=== PATIENT | male | born 1955 | race Caucasian/White ===

== ENCOUNTER 2018-11-09 14:47 | Observation (INO) ==
[2018-11-09] MEDS ORDERED: ASPIRIN 325 MG TABLET PO STA (16:22)
[2018-11-09 16:30] LABS: Basophils % 0.4 % (0.0-0.8); Eosinophils # 0.1 10*3/uL (0.0-0.87); Eosinophils % 1.8 % (0.00-10.9); Hematocrit 42.1 VOL% (42.0-52.0); Hemoglobin 14.2 GM/DL (14.0-18.0); Immature Granulocytes % 0.4 %; Immature Granulocytes Absolute 0.03 #; Lymphocytes # 1.7 10*3/uL (1.4-4.0); Lymphocytes % 23.3 % (21.2-54.2); Mean Corpuscular HGB Conc 33.7 GM/DL (32-36); Mean Corpuscular Hemoglobin 29 PG (27-34); Mean Corpuscular Volume 85.9 FL (87-102); Mean Platelet Volume 9.9 FL (9.6-12.0); Monocytes # 0.6 10*3/uL (0.11-0.8); Monocytes % 8.8 % (1.7-12.7); Neutrophils # 4.7 10*3/uL (1.4-7.4); Neutrophils % 65.3 % (38.7-73.9); Platelet Count 221 T/CUMM (130-400); Red Cell Distribution Width 12.8 % (9.3-17.3); White Blood Count 7.2 T/CUMM (4-12)
[2018-11-09 16:35] LABS: INR 0.9; PT Patient Result 9.7 SECS
[2018-11-09 16:55] LABS: Alanine Aminotransferase 38 U/L (16-61); Albumin 3.5 G/DL (3.4-5.0); Alkaline Phosphatase 109 U/L (45-117); Aspartate Amino Transferase 34 U/L (0-37); Blood Urea Nitrogen 16 MG/DL (7-18); CKMB % 1.9 %; Calcium 8.5 MG/DL (8.5-10.1); Glucose 347 MG/DL (74-106); Osmolality,Calculated 287.8 MOS/KG (273-304); Potassium 4.3 MMOL/L (3.5-5.1); Sodium 137 MMOL/L (136-145); Total Protein 7.7 G/DL (6.4-8.3); Troponin I < 0.015 NG/ML (0.00-0.045)
[2018-11-09] MEDS ORDERED: FUROSEMIDE 20 MG/2 ML VIAL IV STA (17:37)
[2018-11-09] MEDS ORDERED: ONDANSETRON 4 MG/2 ML VIAL IV PRN (17:44)
[2018-11-09] MEDS ORDERED: ACETAMINOPHEN 325 MG TABLET PO PRN (17:44)
[2018-11-09] MEDS ORDERED: ENOXAPARIN 120 MG/0.8 ML SYRINGE SUBCUT STA (17:48)
[2018-11-09] MEDS: DOCUSATE SODIUM 100 MG CAPSULE PO SCH (21:20)
[2018-11-10 06:16] LABS: Basophils % 0.4 % (0.0-0.8); Eosinophils # 0.2 10*3/uL (0.0-0.87); Eosinophils % 2.7 % (0.00-10.9); Hematocrit 43.1 VOL% (42.0-52.0); Hemoglobin 14.2 GM/DL (14.0-18.0); Immature Granulocytes % 0.3 %; Immature Granulocytes Absolute 0.02 #; Lymphocytes # 2.4 10*3/uL (1.4-4.0); Lymphocytes % 31.9 % (21.2-54.2); Mean Corpuscular HGB Conc 32.9 GM/DL (32-36); Mean Corpuscular Hemoglobin 28 PG (27-34); Mean Corpuscular Volume 86.2 FL (87-102); Mean Platelet Volume 10.2 FL (9.6-12.0); Monocytes # 0.8 10*3/uL (0.11-0.8); Monocytes % 10.7 % (1.7-12.7); Neutrophils # 4.1 10*3/uL (1.4-7.4); Platelet Count 214 T/CUMM (130-400); Red Cell Distribution Width 12.9 % (9.3-17.3); White Blood Count 7.5 T/CUMM (4-12)
[2018-11-10 06:35] LABS: Albumin 3.3 G/DL (3.4-5.0); Bilirubin,Total 0.7 MG/DL (0.2-1.0); Calcium 8.1 MG/DL (8.5-10.1); Potassium 3.9 MMOL/L (3.5-5.1); Total Protein 6.7 G/DL (6.4-8.3)
[2018-11-10] MEDS ORDERED: hydrOXYzine HCL 25 MG TABLET PO PRN (07:50)
[2018-11-10] MEDS ORDERED: ZALEPLON 5 MG CAPSULE PO PRN (07:50)
[2018-11-10] MEDS: LEVOTHYROXINE 150 MCG TABLET PO SCH (08:25)
[2018-11-10] MEDS: LOSARTAN 50 MG TABLET PO SCH (08:25)
[2018-11-10] MEDS: PANTOPRAZOLE 40 MG TABLET PO SCH (08:25)
[2018-11-10] MEDS: ENOXAPARIN 40 MG/0.4 ML SYRINGE SUBCUT SCH (08:26)
[2018-11-10] MEDS: PREGABALIN 50 MG CAPSULE PO SCH ×2 (08:26→21:37)
[2018-11-10] MEDS: DOCUSATE SODIUM 100 MG CAPSULE PO SCH ×2 (08:26→21:37)
[2018-11-10] MEDS: VORTIOXETINE HYDROBROMIDE 10 MG PO SCH (08:28)
[2018-11-10] MEDS ORDERED: FUROSEMIDE 20 MG TABLET PO SCH (09:00)
[2018-11-10] MEDS ORDERED: amLODIPine 5 MG TABLET PO SCH (09:00)
[2018-11-10 11:01] LABS: CKMB % 1.5 %; Troponin I < 0.015 NG/ML (0.00-0.045)
[2018-11-10] MEDS ORDERED: ROSUVASTATIN 20 MG TABLET PO SCH (12:00)
[2018-11-10] MEDS ORDERED: METOPROLOL SUCCINATE XL 100 MG TABLET PO SCH (19:00)
[2018-11-10] MEDS ORDERED: FAMOTIDINE 20 MG TABLET PO SCH (19:00)
[2018-11-10] MEDS ORDERED: FUROSEMIDE 40 MG/4 ML VIAL IV ONE (19:53)
[2018-11-10] MEDS ORDERED: TAMSULOSIN 0.4 MG CAPSULE PO SCH (21:00)
[2018-11-10] MEDS ORDERED: MELATONIN 3 MG TABLET PO SCH (21:00)
[2018-11-10] MEDS ORDERED: DIVALPROEX 500 MG TABLET PO SCH (21:00)
[2018-11-10] MEDS: hydrALAZINE 25 MG TABLET PO SCH (21:37)
[2018-11-11 05:38] LABS: Basophils % 0.4 % (0.0-0.8); Eosinophils # 0.1 10*3/uL (0.0-0.87); Eosinophils % 1.7 % (0.00-10.9); Hematocrit 41.4 VOL% (42.0-52.0); Hemoglobin 13.6 GM/DL (14.0-18.0); Immature Granulocytes % 0.4 %; Immature Granulocytes Absolute 0.03 #; Lymphocytes % 27.4 % (21.2-54.2); Mean Corpuscular HGB Conc 32.9 GM/DL (32-36); Mean Corpuscular Hemoglobin 28 PG (27-34); Mean Corpuscular Volume 86.3 FL (87-102); Monocytes # 0.8 10*3/uL (0.11-0.8); Monocytes % 10.5 % (1.7-12.7); Neutrophils # 4.4 10*3/uL (1.4-7.4); Neutrophils % 59.6 % (38.7-73.9); Platelet Count 212 T/CUMM (130-400); Red Cell Distribution Width 12.8 % (9.3-17.3); White Blood Count 7.5 T/CUMM (4-12)
[2018-11-11 06:24] LABS: Blood Urea Nitrogen 17 MG/DL (7-18); Calcium 8.4 MG/DL (8.5-10.1); Cholesterol 144 MG/DL (50-200); Glucose 318 MG/DL (74-106); HDL Cholesterol 31 MG/DL (40-60); Osmolality,Calculated 290.5 MOS/KG (273-304); Potassium 3.9 MMOL/L (3.5-5.1); Risk Ratio 4.65; Sodium 139 MMOL/L (136-145); Thyroid Stimulating Hormone 0.932 uIU/ml (0.358-3.74); Triglycerides 185 MG/DL (2-150)
[2018-11-11] MEDS: LOSARTAN 50 MG TABLET PO SCH (08:56)
[2018-11-11] MEDS: PANTOPRAZOLE 40 MG TABLET PO SCH (08:57)
[2018-11-11] MEDS: hydrALAZINE 25 MG TABLET PO SCH (08:57)
[2018-11-11] MEDS: LEVOTHYROXINE 150 MCG TABLET PO SCH (08:57)
[2018-11-11] MEDS: PREGABALIN 50 MG CAPSULE PO SCH (08:57)
[2018-11-11] MEDS: DOCUSATE SODIUM 100 MG CAPSULE PO SCH (08:58)
[2018-11-11] MEDS: ENOXAPARIN 40 MG/0.4 ML SYRINGE SUBCUT SCH (08:58)
[2018-11-11] MEDS ORDERED: hydroCHLOROthiazide 25 MG TABLET PO SCH (09:00)
[2018-11-11] MEDS: VORTIOXETINE HYDROBROMIDE 10 MG PO SCH (09:23)
[2018-11-11 12:09] VITALS: BP 143/69
== END 2018-11-11 13:11 | disposition home or self-care (01) ==
LOC: N.ED 14:47 → N.EDINP 14:47 → N.TELEN 18:52
PROVIDERS: ADMIT Family Medicine; ATTEND Family Medicine